=== PATIENT | male | born 1960 | race Two or more races ===

== ENCOUNTER 2025-03-29 19:17 | Emergency (ER) | payer OTHER ==
[~2025-03-29] VITALS: Ht 162.6 cm; Wt 72.6 kg
[2025-03-29 19:29] VITALS: TEMP 97.7
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
[2025-03-29 23:00] VITALS: BP 185/99; PULSE 63; RESP 18; O2SAT 97
--- NOTE | 2025-03-30 06:28 | ECG ---
[facility] Test Date: 2025-03-29 Test Time: 19:22:44 Pat Name: VANESSA ELLIS Department: [facility] ED Patient ID: [id number] Room: Gender: M [employer]: : 1960 Requested By: BRIAN BARAJAS Order Number: [id number] Reading MD: Ari Heredia Measurements Intervals [place] Rate: 69 P: 62 ME: 127 QRS: 70 QRSD: 87 T: -19 QT: 425 QTc: 456 Interpretive Statements Sinus rhythm Nonspecific repol abnormality, diffuse leads Electronically Signed On 04-02-2025 22:03:20 PDT by Ari Heredia Please click the below link to view image of tracing.
== END 2025-03-29 23:41 | disposition home or self-care (01) ==
LOC: EDBD 19:17 → ER 19:17
DX: Z77.118 Contact with and (suspected) exposure to other environmental pollution (principal); Z79.899 Other long term (current) drug therapy
CPT/HCPCS: 93005